=== PATIENT | male | born 1950 ===

== ENCOUNTER 2017-02-27 12:01 | Inpatient (IN) | payer OTHER ==
[2017-02-17 12:13] LABS: WBC (NOT ORDERED) (RFLEX) 0 (0-5)
[2017-02-17 12:37] LABS: HEMATOCRIT 46.3 % (40.0-51.0); HEMOGLOBIN 15.9 g/dL (13.6-17.8)
[2017-02-17 12:43] LABS: ASCORBIC ACID (UR NOT ORDER) NEG (NEG); BILIRUBIN, URINE NEGATIVE (NEG); KETONE, URINE NEGATIVE (NEG); LEUKOCYTE ESTERASE(NOT OR NEG (NEG)
[2017-02-17 12:50] LABS: BUN (BLOOD UREA NITROGEN) 17 MG/DL (6-23); CALCIUM, SERUM 9.1 MG/DL (8.5-10.4); CHLORIDE, SERUM 103 MMOL/L (96-112); CO2 (CARBON DIOXIDE) 25 MMOL/L (24-34); CREATININE 0.99 MG/DL (0.70-1.30); GFR AFRICAN AMERICAN 91 ML/MIN (>=60); GFR NON AFRICAN AMERICAN 78 ML/MIN (>=60); GLUCOSE, SERUM 100 MG/DL (60-99); POTASSIUM, SERUM 4.6 MMOL/L (3.5-5.3); SODIUM, SERUM 139 MMOL/L (135-148)
--- NOTE | ~2017-02-27 | OP ---
Record Of Operation [facility] [address] [place]. [address] NAME: SHRUTI DICKEY : 48 STATUS : ADM IN PAT#: [id number] AGE: 66 ADM/REG DATE : 02/27/17 MR#: [id number] REPORT SERV DATE: 02/28/17 DICTATED BY: STAR STOKES DATE: 02/28/17 REPORT STATUS : Draft TRANSCRIBED BY: MODL DATE: 02/28/17 DATE OF PROCEDURE: 02/27/2017 TITLE OF OPERATION: 1. Robot-assisted laparoscopic radical prostatectomy. 2. Robot-assisted laparoscopic extended pelvic lymph node dissection. PREOPERATIVE DIAGNOSIS: Intermediate risk prostate cancer. POSTOPERATIVE DIAGNOSIS: Intermediate risk prostate cancer. INDICATIONS: Mr. Dickey is a 66-year-old male with intermediate risk prostate cancer. He has been counseled regarding his options. He has significant voiding dysfunction, therefore he elected for radical prostatectomy. ANESTHESIA: General. COMPLICATIONS: None. IMPLANTS: 1. 18-[place] Hong. 2. #10 round NAN drain. SPECIMEN: 1. Prostate and seminal vesicles. 2. Anterior fat pad. 3. Left pelvic lymph nodes. ANESTHESIA: General. COMPLICATIONS: None. NARRATIVE: The patient was brought to the operating room, identified by his wristband. General anesthesia was induced and Ancef was given for preoperative antibiotics. He was placed in the dorsal lithotomy position, and prepped and draped in sterile fashion. His abdomen was insufflated to a pressure of 15 mmHg using a Veress needle. An 8 mm port was placed in the supraumbilical position under direct vision. The abdomen was inspected. There were no abnormalities. Two 8 mm ports were placed in the left side of the body and an 8 mm port was placed in the right side of the body for the robotic ports. A 12 mm port was placed in the right lower quadrant and a 5 mm port was placed in the right upper quadrant for assistant federal public defender ports. The patient was placed in Trendelenburg. The robot was docked. I began the operation by incising the peritoneum over the seminal vesicles and vas deferens. These structures were dissected out bilaterally. The vas deferens were clipped and divided bilaterally. The pedicle to the seminal vesicles was clipped and divided bilaterally. The seminal vesicles and vas deferens were then lifted anteriorly. The posterior striated sphincter was then incised and the Denonvilliers fascia was then sharply incised and Record Of Operation [facility] [address] [place]. [address] NAME: SHRUTI DICKEY : 49 STATUS : ADM IN PAT#: [id number] AGE: 66 ADM/REG DATE : 02/27/17 MR#: [id number] REPORT SERV DATE: 02/28/17 DICTATED BY: STAR STOKES DATE: 02/28/17 REPORT STATUS : Draft TRANSCRIBED BY: HERMAN DATE: 02/28/17 reflected onto the rectum. There was dense inflammation surrounding the prostate. Next, the bladder was dropped off the anterior abdominal wall using cautery. This exposed the pubic bone and prostate. The fibrofatty tissue overlying the prostate was controlled with bipolar cautery and scissors. The superficial dorsal vein was controlled with bipolar cautery and scissors. The tissue was removed, sent to Pathology as anterior fat pad. Next, the endopelvic fasciae were divided bilaterally. The puboprostatic ligaments were then divided bilaterally. The levator fibers on the prostate were then bluntly removed bilaterally exposing the dorsal vein. This was stapled with a 45 mm endovascular stapler. This was then oversewn with a 3-0 V-Loc suture. The suture was used to suspend the urethra to the pubic bone as a suspensory stitch. Next, a bladder neck preserving operation was performed. The fibrofatty tissue overlying the bladder neck was controlled with bipolar cautery and scissors. The anterior bladder neck was then sharply entered under direct vision. The remaining detrusor fibers were taken off the prostate sharply. The posterior bladder neck was then incised and dissection was carried down posteriorly to identify the seminal vesicles and vas deferens which were delivered into the field. Next, the pedicles to the prostate were clipped and divided bilaterally. There was dense inflammatory reaction, and the neurovascular bundles were fused to the prostate. I am not sure if this was due to this inflammation or due to cancer. However, decision was made to not spare the nerves given he was already impotent. The nerves were left on the prostate. Vessels were clipped and divided bilaterally. Next, the urethra was identified and sharply divided under direct vision. Care was taken to preserve maximal urethral length. The posterior striated sphincter was then divided and the prostate was delivered from the prostatic fossa and placed into an EndoCatch bag. There was some ongoing bleeding along the prior nerve sites. This was oversewn with 3-0 V-Loc sutures bilaterally. This controlled the bleeding adequately. Next, attention was turned to the left pelvic lymph nodes. All fibrofatty tissue underneath the internal iliac vein within the obturator fossa and overlying the internal iliac vessels was removed. Care was taken to clip lymphatics proximally and distally. The obturator nerve identified and spared. The lymphatic tissue was also densely inflamed either from cancer or from inflammation. Submission to Pathology for permanent sectioning. A prior inguinal hernia was performed on the right side. The mesh was completely overlying the external iliac vessels. Therefore, I decided that it would be unsafe to perform a pelvic lymph node dissection on this side and this portion of the operation was aborted. Next, the posterior striated sphincter was reconstructed with a 3-0 V-Loc suture in the manner described by Alcon. A vesicourethral anastomosis was then performed with two interrupted V-Loc sutures in a running fashion. An 18-[place] Hong catheter was placed into the bladder. The bladder was irrigated. The connection was water tight. The balloon was inflated with 15 mL of sterile water. Record Of Operation [facility] [id number] [place]. [address] NAME: SHRUTI DICKEY : 48 STATUS : ADM IN [facility]#: [id number] AGE: 66 ADM/REG DATE : 02/27/17 MR#: [id number] REPORT SERV DATE: 02/28/17 DICTATED BY: STAR STOKES DATE: 02/28/17 REPORT STATUS : Draft TRANSCRIBED BY: HERMAN DATE: 02/28/17 The robot was undocked. The assistant federal public defender port was closed with a 0 Vicryl suture using Harry- Pineda device. #10 NAN drain was placed to the left lateral robotic port. It was sutured in place with a 2-0 Prolene suture. The supraumbilical incision was enlarged at the skin and fascial levels. The prostate and lymph nodes were sent to Pathology for analysis. The wounds were irrigated clear. The fascia was closed with an 0 Monocryl suture in a figure-of eight fashion. The subcutaneous tissues were closed with a 3-0 Vicryl suture in an interrupted fashion. The skin was closed with a 4-0 Monocryl suture in a subcuticular fashion. Dermabond dressing was placed. A TAP block was placed preoperatively and no complications. The patient was awoken from anesthesia and transferred to recovery room in stable condition. GERARDO/HERMAN Star Stokes MD / [id number] CC: Star Stokes MD
--- NOTE | ~2017-02-27 | PREOPHP ---
PreOp History and Physical [facility] [id number] [place]. [address] NAME: SHRUTI DICKEY : 48 STATUS : DIS IN PAT#: [id number] AGE: 66 ADM/REG DATE : 02/27/17 MR#: [id number] REPORT SERV DATE: 03/28/17 DICTATED BY: STAR CHAPMAN DATE: 03/28/17 REPORT STATUS : Draft TRANSCRIBED BY: HERMAN DATE: 03/28/17 CHIEF COMPLAINT: Prostate cancer. HISTORY OF PRESENT ILLNESS: Mr. Dickey is a very pleasant gentleman with intermediate risk prostate cancer. He is a [place] . He was exposed to Agent Page in the past. He was counseled regarding his options including surveillance, various forms of radiation, and surgery. He is here for robotic-assisted laparoscopic radical prostatectomy. PAST MEDICAL HISTORY: Notable for a prostate cancer, hypertension, hypercholesterolemia, diabetes, tremors, arthritis, heart disease. SURGICAL HISTORY: Hernia repair, carpal tunnel repair, knee surgery. FAMILY HISTORY: Negative for genitourinary cancer. SOCIAL HISTORY: He is a [place] vet. He is exposed to Agent Page. He does not smoke, drink, or use illegal drugs. MEDICATIONS: Reviewed and listed in the chart. ALLERGIES: HE IS ALLERGIC TO CODEINE, PENICILLIN, AND SULFA DRUGS. REVIEW OF SYSTEMS: A 12-point review of systems was performed. Pertinent positives listed in the HPI. PHYSICAL EXAMINATION: VITAL SIGNS: Afebrile. Vital signs stable. GENERAL: No acute distress. HEENT: Head is normocephalic and atraumatic. LUNGS: Breathing nonlabored. He is not in respiratory distress. HEART: Pulse is regular in rate and rhythm. ABDOMEN: Soft, nontender, nondistended. NEUROLOGIC: He is in a wheelchair. He is alert and oriented x3. LABORATORY DATA: No new labs. IMAGING: No new imaging. ASSESSMENT AND PLAN: Intermediate risk prostate cancer. Risks and benefits of a robotic- assisted laparoscopic radical prostatectomy were discussed in detail. Consents were signed. We will proceed as planned. GERADRO/HERMAN Star Crawford PreOp History and Physical [facility] [id number] [place]. [address] NAME: SHRUTI DICKEY : 48 STATUS : DIS IN PAT#: [id number] AGE: 66 ADM/REG DATE : 02/27/17 MR#: [id number] REPORT SERV DATE: 03/28/17 DICTATED BY: STAR CHAPMAN DATE: 03/28/17 REPORT STATUS : Draft TRANSCRIBED BY: MODL DATE: 03/28/17 MD Kike / [id number] CC: MD Edgard Nunez M.D.
[~2017-02-27 12:01] MED LIST: AT25 PO; DITRO5 PO; GLUCPH PO; HYT2 PO; ISOSORB DIN30 MG PO; MOBIC15 MG PO; NEUR800 PO; TRAZ100 PO; WELL100 PO; ZOCOR80 MG PO
[2017-02-27 17:32] LABS: HEMATOCRIT 43.4 % (40.0-51.0); HEMOGLOBIN 14.9 g/dL (13.6-17.8)
[2017-02-27 17:43] LABS: CHLORIDE, SERUM 106 MMOL/L (96-112); CO2 (CARBON DIOXIDE) 24 MMOL/L (24-34); CREATININE 1.13 MG/DL (0.70-1.30); GFR AFRICAN AMERICAN 78 ML/MIN (>=60); GFR NON AFRICAN AMERICAN 67 ML/MIN (>=60); POTASSIUM, SERUM 4.1 MMOL/L (3.5-5.3); SODIUM, SERUM 141 MMOL/L (135-148)
[2017-02-27 17:44] LABS: BUN (BLOOD UREA NITROGEN) 13 MG/DL (6-23); GLUCOSE, SERUM 147 MG/DL (60-99)
[2017-02-28 06:22] LABS: HEMATOCRIT 39.1 % (40.0-51.0); HEMOGLOBIN 13.4 g/dL (13.6-17.8)
[2017-02-28 06:38] LABS: BUN (BLOOD UREA NITROGEN) 16 MG/DL (6-23); CALCIUM, SERUM 7.7 MG/DL (8.5-10.4); CHLORIDE, SERUM 105 MMOL/L (96-112); CO2 (CARBON DIOXIDE) 23 MMOL/L (24-34); CREATININE 0.96 MG/DL (0.70-1.30); GFR AFRICAN AMERICAN 94 ML/MIN (>=60); GFR NON AFRICAN AMERICAN 81 ML/MIN (>=60); GLUCOSE, SERUM 131 MG/DL (60-99); POTASSIUM, SERUM 4.5 MMOL/L (3.5-5.3); SODIUM, SERUM 137 MMOL/L (135-148)
[2017-03-01] MEDS ORDERED: DSS PO (09:36)
[2017-03-01] MEDS ORDERED: PCET PO (09:36)
[2017-03-01] MEDS ORDERED: BACDS PO (09:37)
== END 2017-03-01 13:42 | disposition home or self-care (01) | DRG 708 ==
LOC: SDC/OF 12:01 → PACU 17:14 → 4SO 18:02
PROVIDERS: Urology
PROC: 0VT34ZZ Resection of Bilateral Seminal Vesicles, Percutaneous Endoscopic Approach (ICD-10-PCS; 2017-02-27)
PROC: 07BC4ZX Excision of Pelvis Lymphatic, Percutaneous Endoscopic Approach, Diagnostic (ICD-10-PCS; 2017-02-27)
PROC: 0VTQ4ZZ Resection of Bilateral Vas Deferens, Percutaneous Endoscopic Approach (ICD-10-PCS; 2017-02-27)
PROC: 8E0W4CZ Robotic Assisted Procedure of Trunk Region, Percutaneous Endoscopic Approach (ICD-10-PCS; 2017-02-27)
PROC: 3E0T3CZ (ICD-10-PCS; 2017-02-27)
PROC: 0VT04ZZ Resection of Prostate, Percutaneous Endoscopic Approach (ICD-10-PCS; principal; 2017-02-27 14:30)
DX: C61 Malignant neoplasm of prostate (principal); I10 Essential (primary) hypertension; E11.9 Type 2 diabetes mellitus without complications; J45.909 Unspecified asthma, uncomplicated; G89.29 Other chronic pain; M54.9 Dorsalgia, unspecified; R29.6 Repeated falls; Z87.891 Personal history of nicotine dependence; Z79.84 Long term (current) use of oral hypoglycemic drugs; Z79.1 Long term (current) use of non-steroidal anti-inflammatories (NSAID); Z79.899 Other long term (current) drug therapy; Z91.81 History of falling; Z88.0 Allergy status to penicillin; Z88.5 Allergy status to narcotic agent; Z88.1 Allergy status to other antibiotic agents; Z88.8 Allergy status to other drugs, medicaments and biological substances
CPT/HCPCS: 36415; 80048; 81001; 82570; 82962; 85014; 85018; 86850; 86900; 86901; 88304; 88305; 88307; 88309; 93005; A9270-GY; J0690; J1170; J1885; J2250; J2405; J2710; J2795; J3010